=== PATIENT | male | born 1970 | race Caucasian/White ===

== ENCOUNTER → 2016-04-30 | Outpatient (CLI) | payer OTHER ==
--- NOTE | 2016-05-01 19:27 | SLEEPHOME ---
DATE OF PROCEDURE: 04/30/2016 REFERRING PHYSICIAN: Dr. Keller INTERPRETATION: Diagnostic home sleep testing was performed for evaluation of sleep apnea syndrome symptoms in this patient wearing an oral appliance. 9 hours and 48 minutes of data were reviewed. There were 6 hours and 50 minutes identified as time in bed. During the interval marked time in bed, there were 17 respiratory events identified of 10 seconds in duration or greater for a respiratory event index of 2.5. The events were obstructive and associated with significant oxygen desaturation. Baseline saturation 92%. Lowest oxygen saturation recorded 81%. There was also heart rate variability surrounding respiratory events. Baseline heart rate 60. Pulse rate ranged 43 to 101. Testing was performed in the supine and nonsupine positions. There was no correlation of respiratory events to sleep position. IMPRESSION: Abnormal home sleep testing with repetitive respiratory events and oxygen desaturations to 81%, is consistent with persistent obstructive sleep apnea syndrome despite the use of oral appliance. RECOMMENDATION: Given the significant oxygen desaturation appreciated and heart rate variability, referral for formal sleep evaluation and in laboratory assessment and possibly titration in pressure therapy are recommended.
== END ==
LOC: M SLEEP HO 11:10
PROVIDERS: ATTEND Dentist Orthodontics and Dentofacial Orthopedics
DX: G47.30 Sleep apnea, unspecified (principal)